=== PATIENT | male | born 1975 | race Caucasian/White ===

== ENCOUNTER 2024-09-11 15:56 | Emergency (ER) | payer OTHER, SELFPAY ==
[2024-09-11 16:00] VITALS: BP 105/70
[2024-09-11 16:04] VITALS: BMI 20.7
[2024-09-11 16:08] VITALS: BP 105/70
[2024-09-11 16:14] LABS: % Basophils 0.8 % (0-2); % Immature Granulocytes 0.3 % (0-0.5); % Lymphocytes 38.4 % (20.5-51.1); % Monocytes 9.8 % (1.7-9.3); % Neutrophils 49.7 % (42.2-75.2); Absolute Lymphocytes 1.5 10^3/uL (1.2-3.4); Absolute Monocytes 0.4 10^3/uL (0.1-0.6); Hematocrit 37.6 % (39.0-52.0); Hemoglobin 12.9 g/dL (13.0-18.0); Mean Corp Hgb Conc. 34.3 g/dL (33.0-37.0); Mean Corpuscular Hgb 32.6 pg (27.0-31.0); Mean Corpuscular Volume 94.9 fL (80.0-94.0); Mean Platelet Volume 9.1 fL (7.4-10.4); Nucleated Red Blood Cells % 0 % (-); Platelet Count 152 10^3/uL (130-400); Red Blood Cell Count 3.96 10^6/uL (4.70-6.10); Red Cell Dist. Width 12.1 % (11.5-14.5)
[2024-09-11 16:30] LABS: ALT (SGPT) < 10 U/L (0-50); AST (SGOT) 14 U/L (17-59); Albumin 4.1 g/dl (3.5-5.0); Alkaline Phosphatase 52 U/L (38-126); Blood Urea Nitrogen 15 mg/dl (9-20); Calcium 9.1 mg/dl (8.4-10.2); Carbon Dioxide 27 mmol/L (22-30); Chloride 105 mmol/L (98-107); Estimated Creatinine Clearance > 125 ml/min; Glucose 86 mg/dl (70-99); Magnesium 1.7 mg/dl (1.6-2.3); Potassium 3.8 mmol/L (3.5-5.1); Sodium 139 mmol/L (135-145); Total Protein 6.9 g/dl (6.3-8.2); eGFR > 60.00
--- NOTE | 2024-09-11 16:46 | ED.GENMED ---
History of Present Illness
General
Chief Complaint: Weakness
Source: patient and family
Time Seen by Provider: 09/11/24 16:20
History of Present Illness
History of Present Illness:
A 48-year-old male with past medical history of TBI, bipolar disorder, Parkinson's disease presenting to the ER with EMS from the [facility] for evaluation after the network architect manager was concerned for patient's wellbeing stating the patient seemed to be
acting little bit funny, EMS reported patient without any specific concerns. At time of my exam patient still maintains that he has no concerns. He was reportedly meeting a friend. Notes that he got to the hotel via Uber. Lives at home with his
parents. Denies any fevers or recent illnesses. No headaches, no focal weakness or numbness, no other concerns.
Past History
Past History
ED Past Medical History: Psychiatric and Other (Traumatic brain injury, Parkinson's disease)
ED Past Surgical History: None
Social History
Tobacco: Non-smoker
Alcohol: Occasional
Drug: None
Personal: Single
Living: with family
Employment: Disabled
Review of Systems
Review of Systems
All Other Systems: ROS reviewed and negative except as documented in HPI and ROS
Phy Exam
Physical Exam
Physical Exam:
GENERAL: Alert , in no apparent distress, odd affect, soft spoken
HEAD: NCAT
EYE: conjunctiva clear
NECK: Supple
ENT: o/p clr, mmm.
CARDIAC: Regular rate and rhythm
LUNGS: Clear breath sounds bilaterally, no acute respiratory distress, no wheezes/rales/rhonchi
NEUROLOGICAL: Alert and oriented
SKIN: Warm and dry, skin intact.
MUSCULOSKELETAL: well perfused.
PSYCH: Answering questions appropriately
Scores
Heart Failure Risk
Heart Failure Risk Score: Not Applicable
Heart Score for Chest Pain Patients
STEMI patient?: Not applicable
Withdrawal Assessment of Alcohol
Withdrawal Assessment Completed?: Not applicable
Course
Orders/Labs/Results
Orders:
Orders
09/11/24 16:04
EKG [Electrocardiogram (*1)] Urgent
Reason for Study: Fatigue / Weakness
EKG- Treatment ONCE
09/11/24 16:07
Complete Blood Count/With Diff Urgent
Comprehensive Metabolic Panel Urgent
Magnesium Urgent
09/11/24 16:35
Crisis Consult Urgent
Reason for Consult: bipolar disorder
Abnormal Lab Results
09/11/24
16:07
WBC 4.0 L 10^3/uL
(4.8-10.8)
RBC 3.96 L 10^6/uL
(4.70-6.10)
Hgb 12.9 L g/dL
(13.0-18.0)
Hct 37.6 L %
(39.0-52.0)
MCV 94.9 H fL
(80.0-94.0)
MCH 32.6 H pg
(27.0-31.0)
Monocytes % 9.8 H %
(1.7-9.3)
Creatinine 0.6 L mg/dL
(0.7-1.3)
AST 14 L U/L
(17-59)
09/11/24 16:07
09/11/24 16:07
Vital Signs
Initial and Last Documented VS:
Initial Vital Signs
Pulse Resp BP Pulse Ox
72 17 105/70 100
09/11/24 16:00 09/11/24 16:00 09/11/24 16:00 09/11/24 16:00
Last Documented Vital Signs
Temp Pulse Resp BP Pulse Ox
97.6 F 64 19 130/72 100
09/11/24 16:08 09/11/24 17:30 09/11/24 17:30 09/11/24 17:00 09/11/24 17:30
MDM/Problems Addressed
Differential Diagnosis Includes:
Parkinson's, bipolar disorder, substance use
MDM/Problems Addressed:
48-year-old male presenting the ER from local hotel after he was reportedly acting funny outside of the hotel. Patient without any complaints. He is hemodynamically stable and in no acute distress and appears to be at his baseline. Patient okay
with me contacting his mother, I called the mother at [phone] ended my discussion with the mother she stated that patient has a history of bipolar disorder, seems to be manic, he is ordering prostitutes and strippers, gambling large amounts of
money, staying up and out of the house very late, has attempted to be hospitalized before but has a history of violence and multiple facilities have refused to take him. He is known to [facility]. Mother is patient's power of tax attorney and is
requesting a crisis consultation. Mother will not be filing the 302 at this time, she was notified that if the patient wishes to leave the hospital that he is okay to do so as he is not exhibiting any mental health crisis at this time nor physical
complications.
Chronic conditions affecting care: Psychiatric illness
Acute Exacerbation and/or Progression of Chronic Illness: Psychiatric illness
*Pulse Oximetry
Patient hypoxic: no
*Critical Care Note
Total Time (30-74mins, 75-104mins- exclusive of procedures): Not Applicable
Patient Management
Social determinants of health affecting care: Living situation
Escalation/DeEscalation of care consider admission/obs:
Patient seen and cleared by [facility]. I contacted the mother again and let them know that patient was stable to be discharged from the emergency room. Mother did expressed frustration given this has been an ongoing issue for the
better part of 2-1/2 years and patient has multiple advocates and mother still states that they are having a hard time controlling the patient and notes that he is very manipulative with his behaviors. I did offer mother to keep the patient in the
emergency department if she wished to file a 302 but she did not wish to pursue this. Patient is otherwise stable for discharge home, mother to come to the hospital to take patient home.
ED Attending Note
-
Portions of this chart may have been created with voice recognition software.� Occasional wrong word or��sound alike� substitutions may have occurred due to the inherent limitations of voice recognition software.
Discharge Plan
Departure
Patient Disposition: Home (Routine Discharge)
Date of Disposition: 09/11/24
Time of Disposition: 17:35
Patient with high blood pressure during this ER visit?: No
Discharge Problem:
Bipolar disorder
Instructions: Bipolar disorder - Discharge instructions
Referrals:
UNKNOWN - PT DOES,NOT KNOW [Family Provider] -
Interventions
Interventions:
*Risk Screen - Suicide Last Done: 09/11/24 16:08
*General Assessment Last Done: 09/11/24 16:08
*Neglect/Abuse Screening Last Done: 09/11/24 16:08
*ED- Fall Risk Assessment Last Done: 09/11/24 16:08
*ED COVID-19 Vaccine History Last Done: 09/11/24 16:08
*Nursing Disposition Last Done: 09/11/24 17:45
ED- Cardiac Assessment Last Done: 09/11/24 16:08
ED- Neurological Assessment Last Done: 09/11/24 16:08
ED- Pulmonary Assessment Last Done: 09/11/24 16:08
Discharge Date and Time
Discharge Date/Time: 09/11/24 17:46
Print Language: WELSH
[2024-09-11 17:00] VITALS: BP 130/72
--- NOTE | 2024-09-11 17:31 | EDRN ---
crisis currently at the pts bedside
== END 2024-09-11 17:46 | disposition home or self-care (01) ==
LOC: EMR 15:56
PROVIDERS: EMERGENCY PHYSICIAN Emergency Medicine
DX: F31.9 Bipolar disorder, unspecified (principal); G20.A1 Parkinson's disease without dyskinesia, without mention of fluctuations; Z87.820 Personal history of traumatic brain injury
CPT/HCPCS: 99283; 80053; 83735; 85025; 93005